=== PATIENT | female | born 1965 | race Caucasian/White ===

== ENCOUNTER 2017-10-18 08:00 | Outpatient (CLI) | payer BC | END 2017-10-18 08:01 | disposition home or self-care (01) | LOC: BICMAMMO 08:00 | PROVIDERS: ATTEND Obstetrics & Gynecology | DX: Z12.31 Encounter for screening mammogram for malignant neoplasm of breast (principal) | CPT/HCPCS: 77063; 77067; G0202 ==

== ENCOUNTER 2018-10-28 08:09 | Outpatient (CLI) | payer BC | END 2018-10-28 08:10 | disposition home or self-care (01) | LOC: BICMAMMO 08:09 | PROVIDERS: ATTEND Obstetrics & Gynecology | DX: Z12.31 Encounter for screening mammogram for malignant neoplasm of breast (principal); N64.89 Other specified disorders of breast | CPT/HCPCS: 77063; 77067 ==

== ENCOUNTER 2019-12-11 07:24 | Outpatient (CLI) | payer BC ==
--- NOTE | 2019-12-11 09:15 | ULT ---
GALLBLADDER ULTRASOUND: HISTORY: Hepatomegaly. COMPARISON: None. FINDINGS: The head and proximal pancreatic body have a normal echotexture. The remainder of the pancreas is ob scured by bowel gas. Hepatic parenchyma has a slightly heterogeneous echotexture which may be due to hepatic steatosis or hepatocellular disease. Slightly limited evaluation for hepatic masses and intrahepatic dilatation. The contour of the hepatic margin is maintained. Right hepatic lobe measures 14.7 cm. Main portal vein is patent. Common bile duct diameter is 0.6 cm. No sonographic evidence of cholelithiasis, gallbladder wall thickening, or pericholecystic fluid. Ne gative Harris's sign. The right kidney has a normal cortical echotexture. No hydronephrosis. The right kidney measures 4. 6 x 6.0 x 11.2 cm. IMPRESSION: Slightly heterogeneous echotexture of the liver which may represent hepatic steatosis or hepatocellul ar disease. If there is continued concern, consider further evaluation with abdomen MRI or liver mas s protocol CT. POS: CET
== END 2019-12-11 07:25 | disposition home or self-care (01) ==
LOC: ULT 07:24
PROVIDERS: ATTEND Student in an Organized Health Care Education/Training Program
DX: R16.0 Hepatomegaly, not elsewhere classified (principal); R93.2 Abnormal findings on diagnostic imaging of liver and biliary tract
CPT/HCPCS: 76705

== ENCOUNTER 2019-12-26 07:30 | Outpatient (CLI) | payer BC ==
--- NOTE | 2019-12-26 09:03 | CT ---
CT ABDOMEN WITH AND WITHOUT IV CONTRAST: Date: 12/26/2019 HISTORY: Hepatomegaly. Right upper quadrant pain. Abnormal ultrasound of 12/11/2019. FINDINGS: The lung bases are clear. The liver, spleen, pancreas, and adrenal glands appear normal. No calcified gallstones are noted. The liver measures 17cm and spleen measures 10 cm in length. There is a punctate calculus in the right kidney. No calculi are seen in the left kidney or visualize d portions of either ureter. No hydronephrosis is identified. Postcontrast images demonstrate small l ow density lesions in the kidneys, likely cysts. No free air, free fluid, or lymphadenopathy noted in the abdomen or pelvis. The small bowel loops are not abnormally dilated. There are degenerative dominique ges in the spine. IMPRESSION: 1. Punctate nonobstructing right renal calculus. 2. Probable small renal cysts. POS: [facility]
[2019-12-26] MEDS ORDERED: Iopamidol-370 76% 500 ML 1 ML ONE (13:42)
== END 2019-12-26 07:31 | disposition home or self-care (01) ==
LOC: BICCT 07:30
PROVIDERS: ATTEND Student in an Organized Health Care Education/Training Program
DX: R16.0 Hepatomegaly, not elsewhere classified (principal); N20.0 Calculus of kidney
CPT/HCPCS: 74170; Q9967